=== PATIENT | male | born 1955 | race African-American/Black ===

== ENCOUNTER 2023-09-24 20:51 | Inpatient (IN) | payer MEDICARE ==
[~2023-09-24] VITALS: Ht 175.3 cm; Wt 87.1 kg
[2023-09-24] MEDS: SODIUM CHLORIDE 0.9% 1000ML 1,000 ML IV STA ×2 (21:01→21:09)
[2023-09-24] MEDS: ACETAMINOPHEN 325 MG TAB PO STA (21:01)
[2023-09-24] MEDS: Morphine 4mg INJECTION 4 MG/ML INJ IV STA (21:09)
[2023-09-24] MEDS: ONDANSETRON HCL INJ 2MG/ML 2ML 2 MG/ML VIAL IV STA (21:09)
[2023-09-24] MEDS ORDERED: FENTANYL CITRATE/PF 100MCG/2 ML INJ ONE (21:31)
[2023-09-24] MEDS: FENTANYL CITRATE/PF 100MCG/2 ML INJ IV ONE (21:55)
[2023-09-24 23:42] LABS: BASOPHILS % 0.2 % (0.0-1.0); EOSINOPHILS % 0.2 % (0.0-6.0); HEMOGLOBIN 7.8 g/dL (14.0-18.0); LYMPHOCYTES # (AUTO) 1.3 (1.0-3.2); MEAN CORPUSCULAR HEMOGLOBIN 27.7 pg (28-32); MEAN CORPUSCULAR HGB CONC 32.5 g/dL (31-35); MEAN CORPUSCULAR VOLUME 85.1 fL (81-99); MONOCYTES # (AUTO) 1.1 (0.2-0.8); NEUTROPHILS # (AUTO) 8.8 (2.1-6.9); NEUTROPHILS % 77.5 % (38.7-80.0); PLATELET COUNT 382 x10e3/uL (140-360); RED BLOOD COUNT 2.82 x10e6/uL (4.3-5.7); RED CELL DISTRIBUTION WIDTH 15.8 % (11.7-14.4); WHITE BLOOD COUNT 11.38 x10e3/uL (4.8-10.8)
[2023-09-24 23:45] LABS: ALBUMIN/GLOBULIN RATIO 0.4 (0.8-2.0); ANION GAP 15.5 mmol/L (8-16); BILIRUBIN,TOTAL 0.5 mg/dL (0.2-1.2); CALCIUM 8.1 mg/dL (8.4-10.2); CREATININE, SERUM 2.72 mg/dL (0.72-1.25); POTASSIUM 4.5 mmol/L (3.5-5.1); TOTAL PROTEIN 6.9 g/dL (6.5-8.1)
[2023-09-24 23:51] LABS: TROPONIN I 0.238 ng/mL (0-0.300)
[2023-09-25] VITALS (19 sets, daily range): BP systolic 132–191; BP diastolic 32–148; PULSE 59–88; RESP 11–30; TEMP 98–102.9; O2SAT 94–100
[2023-09-25 01:10] LABS: INR > 5.1
[2023-09-25 01:11] LABS: PROTHROMBIN TIME > 100.0 seconds (11.9-14.5)
[2023-09-25] MEDS ORDERED: SODIUM CHLORIDE FLUSH 10 ML SYR INJ PRN (02:00)
[2023-09-25] MEDS ORDERED: ALBUMIN 5% 0.05 GM/ML BTL IV STA (02:08)
[2023-09-25] MEDS: PHYTONADIONE 10 MG/ML AMP IV STA (02:11)
[2023-09-25 02:52] LABS: INR > 5.1
[2023-09-25 02:53] LABS: PARTIAL THROMBOPLASTIN TIME > 200.0 seconds (23.8-35.5); PROTHROMBIN TIME > 100.0 seconds (11.9-14.5)
[2023-09-25] MEDS: FUROSEMIDE INJ 10 MG/ML 4 ML VIAL IV STA (03:47)
[2023-09-25] MEDS: Morphine 4mg INJECTION 4 MG/ML INJ IV ONE ×2 (03:48→06:11)
[2023-09-25 05:20] LABS: CLARITY,URINE CLOUDY (CLEAR); COLOR,URINE AMBER (YELLOW)
[2023-09-25 05:21] LABS: BILIRUBIN,URINE NEGATIVE (NEGATIVE); GLUCOSE, URINE NEGATIVE (NEGATIVE); KETONES,URINE NEGATIVE (NEGATIVE); LEUKOCYTE ESTERASE ,URINE NEGATIVE (NEGATIVE); NITRITE,URINE NEGATIVE (NEGATIVE); PH,URINE 5.5 (5 - 7); PROTEIN,URINE DIPSTICK 1+ (NEGATIVE); URINE UROBILINOGEN 0.2 mg/dL (0.2 - 1)
[2023-09-25 05:35] LABS: BACTERIA,URINE MANY /HPF; EPITHELIAL CELLS,URINE FEW /LPF; RBC,URINE >50 /HPF (0-5)
[2023-09-25] MEDS: SODIUM CHLORIDE 0.9% 1000ML 1,000 ML IV STA (06:11)
[2023-09-25] MEDS: ONDANSETRON HCL INJ 2MG/ML 2ML 2 MG/ML VIAL IV STA (06:11)
[2023-09-25] MEDS: Morphine 4mg INJECTION 4 MG/ML INJ IV PRN (06:12)
[2023-09-25] MEDS: Doxycycline IV 100 MG in SODIUM CHLORIDE 0.9% 100 ML IV SCH (06:16)
[2023-09-25] MEDS: SODIUM CHLORIDE 0.9% 1000ML 1,000 ML IV SCH (06:29)
[2023-09-25] MEDS: CEFTRIAXONE 2 GM in SODIUM CHLORIDE 0.9% 100 ML IV SCH (09:11)
[2023-09-25] MEDS: METHYLPREDNISOLONE SOD SUCC 40 MG/ML VIAL 1ML IV SCH (12:25)
[2023-09-25] MEDS: HYDRALAZINE HCL 20 MG/ML VIAL IV PRN (13:20)
[2023-09-25] MEDS ORDERED: DIATRIZOATE MEGL/DIATRIZOA SOD 30 ML BTL PO ONE (14:19)
[2023-09-25] MEDS: ONDANSETRON HCL INJ 2MG/ML 2ML 2 MG/ML VIAL IV PRN (14:55)
[2023-09-25] MEDS: ACETAMINOPHEN 1000 MG/100 ML IV ONE (15:32)
[2023-09-25] MEDS: Vancomycin IV 1 GM in SODIUM CHLORIDE 0.9% 250ML 250 ML IV SCH (15:37)
[2023-09-25] MEDS: CARVEDILOL 3.125 MG TAB PO SCH (16:01)
[2023-09-25] MEDS ORDERED: [UNRECOGNIZED DRUG - OTHER] PO (16:56)
[2023-09-25] MEDS ORDERED: WARFARIN SODIUM5 MG PO (16:56)
[2023-09-25] MEDS ORDERED: chondroitin PO (16:56)
[2023-09-25] MEDS ORDERED: ATORVASTATIN CA20 MG PO (16:56)
[2023-09-25] MEDS ORDERED: ASPIRIN CHEW81 MG PO (16:56)
[2023-09-25] MEDS ORDERED: FERROUS SULFAT325 MG PO (16:56)
[2023-09-25] MEDS ORDERED: LASIX40 MG PO (16:56)
[2023-09-25] MEDS ORDERED: PANTOPRAZOLE SO40 MG PO (16:56)
[2023-09-25 17:08] LABS: TROPONIN I 0.167 ng/mL (0-0.300)
[2023-09-25 17:13] LABS: TROPONIN I 0.235 ng/mL (0-0.300)
[2023-09-25] MEDS: FUROSEMIDE INJ 10 MG/ML 4 ML VIAL IV SCH (21:44)
[2023-09-26] VITALS (20 sets, daily range): BP systolic 95–180; BP diastolic 50–81; PULSE 56–74; RESP 11–22; TEMP 98.2–100.3; O2SAT 98–100
[2023-09-26 06:30] LABS: BASOPHILS % 0.1 % (0.0-1.0); HEMATOCRIT 22.1 % (38.2-49.6); HEMOGLOBIN 7.1 g/dL (14.0-18.0); LYMPHOCYTES # (AUTO) 0.5 (1.0-3.2); LYMPHOCYTES % 4.6 % (18.0-39.1); MEAN CORPUSCULAR HEMOGLOBIN 27.2 pg (28-32); MEAN CORPUSCULAR HGB CONC 32.1 g/dL (31-35); MEAN CORPUSCULAR VOLUME 84.7 fL (81-99); MONOCYTES # (AUTO) 0.2 (0.2-0.8); MONOCYTES % 1.7 % (4.4-11.3); NEUTROPHILS # (AUTO) 10.2 (2.1-6.9); NEUTROPHILS % 91.9 % (38.7-80.0); PLATELET COUNT 391 x10e3/uL (140-360); RED BLOOD COUNT 2.61 x10e6/uL (4.3-5.7); RED CELL DISTRIBUTION WIDTH 15.7 % (11.7-14.4); WHITE BLOOD COUNT 11.06 x10e3/uL (4.8-10.8)
[2023-09-26 06:54] LABS: ALBUMIN 1.8 g/dL (3.5-5.0); ALBUMIN/GLOBULIN RATIO 0.4 (0.8-2.0); BILIRUBIN,TOTAL 0.4 mg/dL (0.2-1.2); CALCIUM 8.5 mg/dL (8.4-10.2); CREATININE, SERUM 2.09 mg/dL (0.72-1.25); TOTAL PROTEIN 6.7 g/dL (6.5-8.1)
[2023-09-26 07:14] LABS: TROPONIN I 0.079 ng/mL (0-0.300)
[2023-09-26 07:33] LABS: PROTHROMBIN TIME > 120.0 seconds (11.9-14.5)
[2023-09-26 07:49] LABS: FERRITIN 549.42 ng/mL (21.81-274.66)
[2023-09-26 10:02] LABS: FREE T4 (FREE THYROXINE) 0.94 ng/dL (0.8-1.8); THYROID STIMULATING HORMONE 0.632 uIU/mL (0.350-4.940)
[2023-09-26] MEDS: PHYTONADIONE 5 MG TAB PO ONE (10:36)
[2023-09-26 11:28] LABS: HEPATITIS B SURFACE AG (P) Negative
[2023-09-26 11:29] LABS: HEPATITIS C ANTIBODY Non Reactive
[2023-09-26] MEDS: CEFTRIAXONE 2 GM in SODIUM CHLORIDE 0.9% 100 ML IV SCH (12:58)
[2023-09-26 14:50] LABS: HEMATOCRIT 20.7 % (38.2-49.6); HEMOGLOBIN 6.6 g/dL (14.0-18.0)
[2023-09-26 23:08] LABS: RHEUMATOID FACTOR 13.3 IU/mL (<14.0)
[2023-09-27] VITALS (27 sets, daily range): BP systolic 113–170; BP diastolic 46–85; PULSE 57–64; RESP 12–21; TEMP 97.6–98.3; O2SAT 95–100
[2023-09-27] MEDS: SODIUM CHLORIDE 0.9% 250ML 250 ML ONE (00:02)
[2023-09-27 05:19] LABS: CYCLIC CITRULLINATED PEPTID AB 7 units (0-19)
[2023-09-27 06:22] LABS: BASOPHILS % 0.1 % (0.0-1.0); HEMATOCRIT 22.7 % (38.2-49.6); HEMOGLOBIN 7.3 g/dL (14.0-18.0); LYMPHOCYTES # (AUTO) 0.6 (1.0-3.2); LYMPHOCYTES % 4.4 % (18.0-39.1); MEAN CORPUSCULAR HGB CONC 32.2 g/dL (31-35); MEAN CORPUSCULAR VOLUME 84.1 fL (81-99); MONOCYTES # (AUTO) 0.8 (0.2-0.8); NEUTROPHILS # (AUTO) 11.6 (2.1-6.9); NEUTROPHILS % 87.5 % (38.7-80.0); PLATELET COUNT 350 x10e3/uL (140-360); RED CELL DISTRIBUTION WIDTH 16.4 % (11.7-14.4); WHITE BLOOD COUNT 13.29 x10e3/uL (4.8-10.8)
[2023-09-27 06:36] LABS: INR 3.99; PROTHROMBIN TIME 39.5 seconds (11.9-14.5)
[2023-09-27 06:58] LABS: ALBUMIN 1.8 g/dL (3.5-5.0); ALBUMIN/GLOBULIN RATIO 0.4 (0.8-2.0); BILIRUBIN,TOTAL 0.3 mg/dL (0.2-1.2); CALCIUM 8.1 mg/dL (8.4-10.2); TOTAL PROTEIN 6.1 g/dL (6.5-8.1)
[2023-09-28] VITALS (34 sets, daily range): BP systolic 95–177; BP diastolic 57–132; PULSE 40–63; RESP 13–27; TEMP 98–100.9; O2SAT 92–100
[2023-09-28] MEDS: ERYTHROMYCIN (OPTH) 3.5 GM OINT OP SCH (01:23)
[2023-09-28 05:16] LABS: BASOPHILS % 0.1 % (0.0-1.0); EOSINOPHILS % 0.3 % (0.0-6.0); LYMPHOCYTES % 7.2 % (18.0-39.1); MEAN CORPUSCULAR HEMOGLOBIN 26.8 pg (28-32); MEAN CORPUSCULAR VOLUME 83.6 fL (81-99); MONOCYTES # (AUTO) 1.1 (0.2-0.8); MONOCYTES % 8.3 % (4.4-11.3); NEUTROPHILS # (AUTO) 10.8 (2.1-6.9); NEUTROPHILS % 78.8 % (38.7-80.0); PLATELET COUNT 373 x10e3/uL (140-360); RED BLOOD COUNT 2.99 x10e6/uL (4.3-5.7); RED CELL DISTRIBUTION WIDTH 16.9 % (11.7-14.4); WHITE BLOOD COUNT 13.66 x10e3/uL (4.8-10.8)
[2023-09-28 05:23] LABS: INR 2.66; PROTHROMBIN TIME 28.8 seconds (11.9-14.5)
[2023-09-28 05:42] LABS: ALBUMIN/GLOBULIN RATIO 0.4 (0.8-2.0); ANION GAP 11.9 mmol/L (8-16); BILIRUBIN,TOTAL 0.3 mg/dL (0.2-1.2); CALCIUM 8.8 mg/dL (8.4-10.2); CREATININE, SERUM 1.93 mg/dL (0.72-1.25); POTASSIUM 4.9 mmol/L (3.5-5.1); TOTAL PROTEIN 6.5 g/dL (6.5-8.1)
[2023-09-28] MEDS ORDERED: PHENYLEPHRINE HCL 1% 10 MG/ML VIAL ONE (11:49)
[2023-09-28] MEDS ORDERED: PROPOFOL IV EMULSION 10 MG/ML 20 ML VIAL ONE (11:49)
[2023-09-28] MEDS ORDERED: SODIUM CHLORIDE 0.9% INJ 100 ML BAG ONE (11:49)
[2023-09-28] MEDS ORDERED: MIDAZOLAM HCL 2 MG/2 ML VIAL ONE (11:52)
[2023-09-28 18:20] LABS: INR 2.89; PROTHROMBIN TIME 30.7 seconds (11.9-14.5)
[2023-09-28] MEDS: HEPARIN 25,000 UNIT/D5W 250ML 900 UNIT in DEXTROSE 5% 250ML 250 ML IV SCH (18:37)
[2023-09-29] VITALS (15 sets, daily range): BP systolic 130–184; BP diastolic 43–72; PULSE 58–62; RESP 14–23; TEMP 97–101.3; O2SAT 96–99
[2023-09-29] MEDS: ACETAMINOPHEN 1000 MG/100 ML IV PRN (02:06)
[2023-09-29 06:55] LABS: BASOPHILS % 0.2 % (0.0-1.0); EOSINOPHILS % 0.2 % (0.0-6.0); HEMATOCRIT 23.8 % (38.2-49.6); HEMOGLOBIN 7.6 g/dL (14.0-18.0); LYMPHOCYTES # (AUTO) 1.5 (1.0-3.2); LYMPHOCYTES % 8.8 % (18.0-39.1); MEAN CORPUSCULAR HGB CONC 31.9 g/dL (31-35); MEAN CORPUSCULAR VOLUME 84.7 fL (81-99); MONOCYTES # (AUTO) 1.6 (0.2-0.8); MONOCYTES % 9.1 % (4.4-11.3); NEUTROPHILS # (AUTO) 13.2 (2.1-6.9); NEUTROPHILS % 77.2 % (38.7-80.0); PLATELET COUNT 360 x10e3/uL (140-360); RED BLOOD COUNT 2.81 x10e6/uL (4.3-5.7); RED CELL DISTRIBUTION WIDTH 16.7 % (11.7-14.4); WHITE BLOOD COUNT 17.17 x10e3/uL (4.8-10.8)
[2023-09-29] MEDS: SODIUM CHLORIDE 0.9% 250ML 250 ML IV ONE (08:50)
[2023-09-29] MEDS: SODIUM CHLORIDE 0.9% 1000ML 1,000 ML ONE (08:50)
[2023-09-29] MEDS: BENZOCAINE 20% SPR 60 ML CAN ONE (08:50)
[2023-09-29 14:06] LABS: ANION GAP 17.6 mmol/L (8-16); CALCIUM 8.9 mg/dL (8.4-10.2); CREATININE, SERUM 1.96 mg/dL (0.72-1.25); POTASSIUM 4.6 mmol/L (3.5-5.1)
[2023-09-29 14:12] LABS: INR 2.65; PROTHROMBIN TIME 28.7 seconds (11.9-14.5)
[2023-09-29] MEDS: Ampicillin INJ 2 GM in SODIUM CHLORIDE 0.9% 100 ML IV SCH (15:06)
[2023-09-29] MEDS: CARVEDILOL 12.5 MG TAB PO SCH (16:46)
[2023-09-30] VITALS (24 sets, daily range): BP systolic 124–181; BP diastolic 40–74; PULSE 47–63; RESP 16–24; TEMP 97.5–100.6; O2SAT 96–100
[2023-09-30 06:34] LABS: BASOPHILS % 0.2 % (0.0-1.0); EOSINOPHILS % 0.2 % (0.0-6.0); HEMATOCRIT 23.1 % (38.2-49.6); LYMPHOCYTES # (AUTO) 1.1 (1.0-3.2); LYMPHOCYTES % 5.9 % (18.0-39.1); MEAN CORPUSCULAR HEMOGLOBIN 26.3 pg (28-32); MEAN CORPUSCULAR HGB CONC 30.3 g/dL (31-35); MEAN CORPUSCULAR VOLUME 86.8 fL (81-99); MONOCYTES # (AUTO) 1.6 (0.2-0.8); MONOCYTES % 9.1 % (4.4-11.3); NEUTROPHILS # (AUTO) 14.6 (2.1-6.9); NEUTROPHILS % 81.7 % (38.7-80.0); PLATELET COUNT 299 x10e3/uL (140-360); RED BLOOD COUNT 2.66 x10e6/uL (4.3-5.7); RED CELL DISTRIBUTION WIDTH 16.7 % (11.7-14.4); WHITE BLOOD COUNT 17.88 x10e3/uL (4.8-10.8)
[2023-09-30 06:49] LABS: ALBUMIN 1.8 g/dL (3.5-5.0); ALBUMIN/GLOBULIN RATIO 0.4 (0.8-2.0); ANION GAP 13.4 mmol/L (8-16); BILIRUBIN,TOTAL 0.4 mg/dL (0.2-1.2); CALCIUM 8.7 mg/dL (8.4-10.2); CREATININE, SERUM 1.85 mg/dL (0.72-1.25); POTASSIUM 4.4 mmol/L (3.5-5.1); TOTAL PROTEIN 6.2 g/dL (6.5-8.1)
[2023-09-30] MEDS: LIDOCAINE HCL 2% LOCAL 20 ML VIAL ONE (09:04)
[2023-09-30 09:38] LABS: BASOPHILS % 0.2 % (0.0-1.0); EOSINOPHILS # (AUTO) 0.1 (0.0-0.4); EOSINOPHILS % 0.3 % (0.0-6.0); HEMATOCRIT 23.7 % (38.2-49.6); HEMOGLOBIN 7.3 g/dL (14.0-18.0); LYMPHOCYTES # (AUTO) 1.1 (1.0-3.2); LYMPHOCYTES % 6.5 % (18.0-39.1); MEAN CORPUSCULAR HEMOGLOBIN 26.7 pg (28-32); MEAN CORPUSCULAR HGB CONC 30.8 g/dL (31-35); MEAN CORPUSCULAR VOLUME 86.8 fL (81-99); MONOCYTES # (AUTO) 1.7 (0.2-0.8); MONOCYTES % 9.7 % (4.4-11.3); NEUTROPHILS # (AUTO) 13.5 (2.1-6.9); NEUTROPHILS % 79.3 % (38.7-80.0); PLATELET COUNT 334 x10e3/uL (140-360); RED BLOOD COUNT 2.73 x10e6/uL (4.3-5.7); RED CELL DISTRIBUTION WIDTH 16.6 % (11.7-14.4); WHITE BLOOD COUNT 17.03 x10e3/uL (4.8-10.8)
[2023-09-30 09:49] LABS: INR 2.16; PROTHROMBIN TIME 24.5 seconds (11.9-14.5)
[2023-09-30] MEDS: SODIUM CHLORIDE 0.9% 250ML 250 ML IV ONE (12:07)
[2023-09-30 17:14] LABS: BASOPHILS % 0.1 % (0.0-1.0); EOSINOPHILS # (AUTO) 0.1 (0.0-0.4); EOSINOPHILS % 0.4 % (0.0-6.0); HEMATOCRIT 27.3 % (38.2-49.6); HEMOGLOBIN 8.4 g/dL (14.0-18.0); LYMPHOCYTES # (AUTO) 0.8 (1.0-3.2); LYMPHOCYTES % 5.8 % (18.0-39.1); MEAN CORPUSCULAR HEMOGLOBIN 26.9 pg (28-32); MEAN CORPUSCULAR HGB CONC 30.8 g/dL (31-35); MEAN CORPUSCULAR VOLUME 87.5 fL (81-99); MONOCYTES # (AUTO) 1.3 (0.2-0.8); MONOCYTES % 9.2 % (4.4-11.3); NEUTROPHILS # (AUTO) 11.6 (2.1-6.9); NEUTROPHILS % 81.4 % (38.7-80.0); PLATELET COUNT 271 x10e3/uL (140-360); RED BLOOD COUNT 3.12 x10e6/uL (4.3-5.7); RED CELL DISTRIBUTION WIDTH 16.2 % (11.7-14.4)
[2023-09-30 17:32] LABS: ALBUMIN 1.9 g/dL (3.5-5.0); ALBUMIN/GLOBULIN RATIO 0.4 (0.8-2.0); ANION GAP 15.3 mmol/L (8-16); BILIRUBIN,TOTAL 0.4 mg/dL (0.2-1.2); CALCIUM 8.7 mg/dL (8.4-10.2); CREATININE, SERUM 1.94 mg/dL (0.72-1.25); POTASSIUM 4.3 mmol/L (3.5-5.1); TOTAL PROTEIN 6.6 g/dL (6.5-8.1)
[2023-10-01] VITALS (24 sets, daily range): BP systolic 123–189; BP diastolic 44–68; PULSE 58–70; RESP 15–24; TEMP 97.2–99.3; O2SAT 93–100
[2023-10-01 06:43] LABS: BASOPHILS % 0.3 % (0.0-1.0); EOSINOPHILS # (AUTO) 0.1 (0.0-0.4); EOSINOPHILS % 0.4 % (0.0-6.0); HEMATOCRIT 25.9 % (38.2-49.6); LYMPHOCYTES % 6.4 % (18.0-39.1); MEAN CORPUSCULAR HEMOGLOBIN 27.2 pg (28-32); MEAN CORPUSCULAR HGB CONC 30.9 g/dL (31-35); MEAN CORPUSCULAR VOLUME 88.1 fL (81-99); MONOCYTES # (AUTO) 1.6 (0.2-0.8); MONOCYTES % 10.7 % (4.4-11.3); NEUTROPHILS # (AUTO) 11.7 (2.1-6.9); PLATELET COUNT 277 x10e3/uL (140-360); RED BLOOD COUNT 2.94 x10e6/uL (4.3-5.7); RED CELL DISTRIBUTION WIDTH 16.3 % (11.7-14.4); WHITE BLOOD COUNT 14.92 x10e3/uL (4.8-10.8)
[2023-10-01 06:57] LABS: ALBUMIN 1.9 g/dL (3.5-5.0); ALBUMIN/GLOBULIN RATIO 0.4 (0.8-2.0); ANION GAP 13.3 mmol/L (8-16); BILIRUBIN,TOTAL 0.4 mg/dL (0.2-1.2); CALCIUM 8.7 mg/dL (8.4-10.2); CREATININE, SERUM 1.86 mg/dL (0.72-1.25); MAGNESIUM 1.8 MG/DL (1.3-2.1); POTASSIUM 4.3 mmol/L (3.5-5.1); TOTAL PROTEIN 6.3 g/dL (6.5-8.1)
[2023-10-01] MEDS ORDERED: SODIUM CHLORIDE 0.9% 100 ML ONE (13:09)
[2023-10-01] MEDS: ACETAMINOPHEN 325 MG TAB PO PRN (13:38)
[2023-10-02] VITALS (16 sets, daily range): BP systolic 110–164; BP diastolic 57–91; PULSE 60–81; RESP 17–27; TEMP 98–99.6; O2SAT 94–98
[2023-10-02 07:02] LABS: BASOPHILS % 0.2 % (0.0-1.0); EOSINOPHILS % 0.3 % (0.0-6.0); HEMATOCRIT 25.5 % (38.2-49.6); LYMPHOCYTES # (AUTO) 0.9 (1.0-3.2); LYMPHOCYTES % 7.2 % (18.0-39.1); MEAN CORPUSCULAR HEMOGLOBIN 26.9 pg (28-32); MEAN CORPUSCULAR HGB CONC 30.2 g/dL (31-35); MEAN CORPUSCULAR VOLUME 89.2 fL (81-99); MONOCYTES # (AUTO) 1.4 (0.2-0.8); MONOCYTES % 10.8 % (4.4-11.3); NEUTROPHILS % 78.7 % (38.7-80.0); PLATELET COUNT 284 x10e3/uL (140-360); RED BLOOD COUNT 2.86 x10e6/uL (4.3-5.7); RED CELL DISTRIBUTION WIDTH 16.8 % (11.7-14.4); WHITE BLOOD COUNT 12.71 x10e3/uL (4.8-10.8)
[2023-10-02 07:03] LABS: HEMOGLOBIN 7.7 g/dL (14.0-18.0)
[2023-10-02 07:17] LABS: ANION GAP 13.2 mmol/L (8-16); CALCIUM 8.8 mg/dL (8.4-10.2); CREATININE, SERUM 1.67 mg/dL (0.72-1.25); MAGNESIUM 1.8 MG/DL (1.3-2.1); POTASSIUM 4.2 mmol/L (3.5-5.1)
[2023-10-03] VITALS (12 sets, daily range): BP systolic 135–191; BP diastolic 56–86; PULSE 59–66; RESP 17–22; TEMP 98.4–100.1; O2SAT 93–99
[2023-10-03 06:47] LABS: BASOPHILS % 0.1 % (0.0-1.0); EOSINOPHILS # (AUTO) 0.1 (0.0-0.4); EOSINOPHILS % 0.7 % (0.0-6.0); HEMATOCRIT 25.2 % (38.2-49.6); LYMPHOCYTES # (AUTO) 0.9 (1.0-3.2); LYMPHOCYTES % 7.6 % (18.0-39.1); MEAN CORPUSCULAR HEMOGLOBIN 27.1 pg (28-32); MEAN CORPUSCULAR HGB CONC 31.7 g/dL (31-35); MEAN CORPUSCULAR VOLUME 85.4 fL (81-99); MONOCYTES # (AUTO) 1.2 (0.2-0.8); MONOCYTES % 10.6 % (4.4-11.3); NEUTROPHILS # (AUTO) 9.2 (2.1-6.9); NEUTROPHILS % 78.8 % (38.7-80.0); PLATELET COUNT 265 x10e3/uL (140-360); RED BLOOD COUNT 2.95 x10e6/uL (4.3-5.7); RED CELL DISTRIBUTION WIDTH 16.7 % (11.7-14.4); WHITE BLOOD COUNT 11.63 x10e3/uL (4.8-10.8)
[2023-10-03 07:21] LABS: ALBUMIN 1.9 g/dL (3.5-5.0); ALBUMIN/GLOBULIN RATIO 0.4 (0.8-2.0); ANION GAP 13.9 mmol/L (8-16); BILIRUBIN,TOTAL 0.4 mg/dL (0.2-1.2); CALCIUM 8.8 mg/dL (8.4-10.2); CREATININE, SERUM 1.59 mg/dL (0.72-1.25); POTASSIUM 3.9 mmol/L (3.5-5.1); TOTAL PROTEIN 6.6 g/dL (6.5-8.1)
[2023-10-03] MEDS: HYDROCODONE/APAP 5MG-325MG TAB PO PRN (23:32)
[2023-10-04] VITALS (8 sets, daily range): BP systolic 138–171; BP diastolic 52–81; PULSE 59–60; RESP 16–21; TEMP 97.8–99.1; O2SAT 96–100
[2023-10-04 06:02] LABS: BASOPHILS % 0.2 % (0.0-1.0); EOSINOPHILS % 0.4 % (0.0-6.0); HEMATOCRIT 25.3 % (38.2-49.6); LYMPHOCYTES # (AUTO) 1.1 (1.0-3.2); LYMPHOCYTES % 9.7 % (18.0-39.1); MEAN CORPUSCULAR HGB CONC 31.6 g/dL (31-35); MEAN CORPUSCULAR VOLUME 85.5 fL (81-99); MONOCYTES # (AUTO) 1.2 (0.2-0.8); MONOCYTES % 10.9 % (4.4-11.3); NEUTROPHILS # (AUTO) 8.7 (2.1-6.9); NEUTROPHILS % 76.9 % (38.7-80.0); PLATELET COUNT 232 x10e3/uL (140-360); RED BLOOD COUNT 2.96 x10e6/uL (4.3-5.7); RED CELL DISTRIBUTION WIDTH 16.5 % (11.7-14.4); WHITE BLOOD COUNT 11.35 x10e3/uL (4.8-10.8)
[2023-10-04 06:33] LABS: ALBUMIN 1.8 g/dL (3.5-5.0); ALBUMIN/GLOBULIN RATIO 0.4 (0.8-2.0); ANION GAP 13.7 mmol/L (8-16); BILIRUBIN,TOTAL 0.5 mg/dL (0.2-1.2); CALCIUM 8.7 mg/dL (8.4-10.2); CREATININE, SERUM 1.54 mg/dL (0.72-1.25); POTASSIUM 3.7 mmol/L (3.5-5.1); TOTAL PROTEIN 6.4 g/dL (6.5-8.1)
[2023-10-04] MEDS: CARVEDILOL 12.5 MG TAB PO SCH (09:44)
[2023-10-04] MEDS: HYDROCODONE/APAP 5MG-325MG TAB PO PRN (17:08)
[2023-10-04] MEDS: Ampicillin INJ 2 GM in SODIUM CHLORIDE 0.9% 100 ML IV SCH (17:58)
[2023-10-05] VITALS (8 sets, daily range): BP systolic 121–175; BP diastolic 48–73; PULSE 59–63; RESP 18–24; TEMP 98.4–99.9; O2SAT 95–97
[2023-10-05 05:57] LABS: BASOPHILS % 0.1 % (0.0-1.0); EOSINOPHILS % 0.2 % (0.0-6.0); HEMATOCRIT 25.3 % (38.2-49.6); LYMPHOCYTES # (AUTO) 1.3 (1.0-3.2); LYMPHOCYTES % 8.5 % (18.0-39.1); MEAN CORPUSCULAR HEMOGLOBIN 26.9 pg (28-32); MEAN CORPUSCULAR HGB CONC 31.6 g/dL (31-35); MEAN CORPUSCULAR VOLUME 85.2 fL (81-99); MONOCYTES # (AUTO) 1.4 (0.2-0.8); MONOCYTES % 9.2 % (4.4-11.3); NEUTROPHILS # (AUTO) 12.5 (2.1-6.9); NEUTROPHILS % 80.3 % (38.7-80.0); PLATELET COUNT 219 x10e3/uL (140-360); RED BLOOD COUNT 2.97 x10e6/uL (4.3-5.7); RED CELL DISTRIBUTION WIDTH 16.6 % (11.7-14.4); WHITE BLOOD COUNT 15.57 x10e3/uL (4.8-10.8)
[2023-10-05 06:33] LABS: ALBUMIN 1.9 g/dL (3.5-5.0); ALBUMIN/GLOBULIN RATIO 0.4 (0.8-2.0); ANION GAP 16.1 mmol/L (8-16); BILIRUBIN,TOTAL 0.5 mg/dL (0.2-1.2); CALCIUM 8.4 mg/dL (8.4-10.2); CREATININE, SERUM 1.7 mg/dL (0.72-1.25); POTASSIUM 4.1 mmol/L (3.5-5.1); TOTAL PROTEIN 6.8 g/dL (6.5-8.1)
== END 2023-10-05 19:45 | disposition short-term general hospital (02) | DRG 314 ==
LOC: ER 21:02 → ERHOLD 09-25 01:52 → ICU 09-25 06:07 → MED/SURG2 10-03 09:29
PROVIDERS: ADMIT Internal Medicine; ATTEND Internal Medicine
PROC: 06HY33Z Insertion of Infusion Device into Lower Vein, Percutaneous Approach (ICD-10-PCS; 2023-09-25)
PROC: B24BZZ4 Ultrasonography of Heart with Aorta, Transesophageal (ICD-10-PCS; principal; 2023-09-28)
PROC: 4A043R1 Measurement of Venous Saturation, Peripheral, Percutaneous Approach (ICD-10-PCS; 2023-09-28)
PROC: 05HC33Z Insertion of Infusion Device into Left Basilic Vein, Percutaneous Approach (ICD-10-PCS; 2023-09-30)
PROC: 30243N1 Transfusion of Nonautologous Red Blood Cells into Central Vein, Percutaneous Approach (ICD-10-PCS; 2023-09-30)
PROC: 3E04329 Introduction of Other Anti-infective into Central Vein, Percutaneous Approach (ICD-10-PCS; 2023-09-30)
DX: T82.6XXA Infection and inflammatory reaction due to cardiac valve prosthesis, initial encounter (principal); I33.0 Acute and subacute infective endocarditis; I50.21 Acute systolic (congestive) heart failure; N17.9 Acute kidney failure, unspecified; E87.1 Hypo-osmolality and hyponatremia; E46 Unspecified protein-calorie malnutrition; I13.0 Hypertensive heart and chronic kidney disease with heart failure and stage 1 through stage 4 chronic kidney disease, or unspecified chronic kidney disease; R78.81 Bacteremia; B95.2 Enterococcus as the cause of diseases classified elsewhere; Y71.2 Prosthetic and other implants, materials and accessory cardiovascular devices associated with adverse incidents; Y92.89 Other specified places as the place of occurrence of the external cause; R79.1 Abnormal coagulation profile; I25.10 Atherosclerotic heart disease of native coronary artery without angina pectoris; D64.9 Anemia, unspecified; E78.2 Mixed hyperlipidemia; R31.9 Hematuria, unspecified; C61 Malignant neoplasm of prostate; R53.81 Other malaise; N18.9 Chronic kidney disease, unspecified; R33.9 Retention of urine, unspecified; E04.1 Nontoxic single thyroid nodule; B33.8 Other specified viral diseases; I27.20 Pulmonary hypertension, unspecified; H10.9 Unspecified conjunctivitis; Z95.1 Presence of aortocoronary bypass graft; Z79.01 Long term (current) use of anticoagulants; Z95.810 Presence of automatic (implantable) cardiac defibrillator; Z20.822 Contact with and (suspected) exposure to COVID-19; Z68.28 Body mass index [BMI] 28.0-28.9, adult
CPT/HCPCS: 36415; 36600; 71045; 71250; 72125; 72128; 72131; 74176; 76536; 80048; 80053; 80202; 81001; 82550; 82728; 83540; 83605; 83690; 83735; 83880; 84439; 84443; 84466; 84484; 85014; 85018; 85025; 85610; 85730; 86039; 86140; 86200; 86431; 86757; 86850; 86900; 86920; 87040; 87071; 87186; 87205; 87207; 87400; 93005; 93306; 93312; 93320; 93325; 93355; 93930; 93970; 94660; 94799; 99252; 99284; J0360; J0696; J1940; J2001; J2250; J2270; J2371; J2405; J2543; J2920; J3430; J7030; J7050; P9016; Q9963; U0002